=== PATIENT | female | born 1945 | race Caucasian/White ===

== ENCOUNTER 2017-06-20 07:45 | Emergency (ER) | payer MEDICARE ==
[~2017-06-20] VITALS: Ht 165.1 cm; Wt 54.5 kg
[2017-06-20 07:48] VITALS: BP 140/76; PULSE 113; RESP 15; TEMP 97.8; O2SAT 99
[2017-06-20] MEDS ORDERED: ESTR42.5V VAGINAL (08:10)
[2017-06-20] MEDS ORDERED: LEVO.05 PO (08:10)
[2017-06-20] MEDS ORDERED: PROG100C PO (08:10)
--- NOTE | 2017-06-20 08:23 | PD ---
HPI Chief Complaint: Pain: Acute or Chronic Time Seen by Provider: 08:05 Travel History International Travel<30 days: No Contact w/Intl Traveler<30days: No Traveled to known affect area: No History of Present Illness HPI 71-year-old female complains of right upper arm aching pain, right-sided neck pain right upper back pain. Patient states that right upper arm pain started about 5-6 months ago. Patient started having right-sided neck pain with radiation to right shoulder pain at the right upper back for the past 2 weeks. Patient denies any recent injury. Patient denies any coughing congestion. Patient denies any chest pain or shortness of breath. PFSH Past Medical History Medical other: Yes (INTERSTICIAL CYSTITIS) Tetanus Vaccination: < 5 Years Influenza Vaccination: Yes ?: Not Past Surgical History Abdominal Surgery: Yes (9 INTESTINAL SURGERIES ) Other Surgery: Yes (ILIOSTOMY - INTERIOR BAG PLACEMENT) Social History Alcohol Use: No Tobacco Use: No Substance Use: No Allergies-Medications (Allergen,Severity, Reaction): Coded Allergies: aspirin (Verified Allergy, Severe, 06/20/17) ibuprofen (Verified Allergy, Severe, 06/20/17) meperidine (Verified Allergy, Severe, 06/20/17) "PSYCHOTIC REACTIONS" Reported Meds & Prescriptions Reported Meds & Active Scripts Active Reported Progesterone Micronized 100 Mg Cap 100 Mg PO DAILY Estrace Vaginal (Estradiol) 0.01% Cream 1 Appl VAGINAL HS Synthroid (Levothyroxine Sodium) 50 Mcg Tab 50 Mcg PO DAILY Review of Systems General / Constitutional: No: Fever Eyes: No: Visual changes HENT: No: Headaches Cardiovascular: No: Chest Pain or Discomfort Respiratory: No: Shortness of Breath Gastrointestinal: No: Abdominal Pain Genitourinary: No: Dysuria Musculoskeletal: Positive: Pain Skin: No Rash Neurologic: No: Weakness Psychiatric: No: Depression Endocrine: No: Polydipsia Hematologic/Lymphatic: No: Easy Bruising Physical Exam Narrative GENERAL: Well-nourished, well-developed patient. SKIN: Focused skin assessment warm/dry. HEAD: Normocephalic. EYES: No scleral icterus. No injection or drainage. NECK: Supple, trachea midline. No JVD or lymphadenopathy. Mild tenderness on palpation right paraspinal area cervical spine. No midline tenderness. CARDIOVASCULAR: Regular rate and rhythm without murmurs, gallops, or rubs. RESPIRATORY: Breath sounds equal bilaterally. No accessory muscle use. GASTROINTESTINAL: Abdomen soft, non-tender, nondistended. MUSCULOSKELETAL: No cyanosis, or edema. Mild tenderness on palpation right shoulder pain area. Full range of motion the right shoulder joint. No deformity noted. BACK: Nontender without obvious deformity. No CVA tenderness. Neurologic exam normal. Data Data Last Documented VS Vital Signs Date Time Temp Pulse Resp B/P (MAP) Pulse Ox O2 Delivery O2 Flow Rate FiO2 06/20/17 07:48 97.8 113 15 140/76 (97) 99 Orders Orders Mri C Spine W/O Contrast (06/20/17 08:18) Humerus (Min 2vws) (06/20/17 08:18) Electrocardiogram (06/20/17 ) MDM Medical Decision Making Medical Screen Exam Complete: Yes Emergency Medical Condition: Yes Interpretation(s) Last Impressions Humerus X-Ray 06/20/17817 Signed Impressions: Service Date/Time: Tuesday, June 20, 2017 08:34 - CONCLUSION: Unremarkable examination of the right humerus. Marco A Miguel Jr., MD Cervical Spine MRI 06/20/17817 Signed Impressions: Service Date/Time: Tuesday, June 20, 2017 09:46 - CONCLUSION: 1. Diffuse degenerative disc disease including areas of narrowing of the central canal, abutment of the cord, and neural foraminal narrowing. No signal change within the cord to suggest edema or myelomalacia. Each level detailed in the above discussion. Marco A Miguel Jr., MD Differential Diagnosis Differential diagnosis including musculoskeletal, radiculopathy. Narrative Course 71-year-old female with right-sided neck pain, right upper back pain, right arm pain. Diagnosis Primary Impression: Cervical radiculopathy Patient Instructions: General Instructions Additional Instructions: Medrol Dosepak as directed. Zantac as directed. Follow-up with neurologist or neurosurgeon. Return if worse. Med/Other Pt SpecificInfo: Prescription(s) given Scripts Methylprednisolone Dosepak (Medrol Dosepak) 4 Mg Dspk 4 MG PO DIRECTED, #1 DSPK 0 Refills Per Pharmacist direction Prov: Grant Ballesteros MD 06/20/17 Disposition: 01 DISCHARGE HOME Condition: Stable Grant Ballesteros MD Jun 20, 2017 08:23
--- NOTE | 2017-06-20 09:04 | RADRPT ---
EXAM DATE/TIME: 06/20/2017 08:34 [facility] COMPARISON: No previous studies available for comparison. INDICATIONS : Right arm pain for several weeks , no history of trauma. MEDICAL HISTORY : None. SURGICAL HISTORY : None. ENCOUNTER: Initial ACUITY: 3 weeks PAIN SCORE: 8/10 LOCATION: Right arm extending into neck FINDINGS: Two view examination of the right humerus demonstrates no evidence of fracture or dislocation. Bony mineralization is normal. Mild degenerative changes of the a.c. joint. The soft tissue structures ar e intact. CONCLUSION: Unremarkable examination of the right humerus. Marco A Miguel Jr., MD on June 20, 2017 at 9:01 Board Certified Radiologist. This report was verified electronically.
--- NOTE | 2017-06-20 10:44 | RADRPT ---
EXAM DATE/TIME: 06/20/2017 09:46 [facility] COMPARISON: No previous studies available for comparison. INDICATIONS : Neck and right arm pain. MEDICAL HISTORY : Renal calculi. SURGICAL HISTORY : Ileostomy. ENCOUNTER: Initial ACUITY: 2 day PAIN SCORE: 4/10 LOCATION: neck TECHNIQUE: Multiplanar, multisequence MRI examination of the cervical spine was performed. FINDINGS: VERTEBRAE: Normal vertebral body height. Homogeneous marrow signal. ALIGNMENT: There is straightening of the cervical spine with grade 1 anterolisthesis of C3 on C4. CORD: Normal configuration and signal. POST FOSSA: The cerebellar tonsils are normal in position. C2-C3: The thecal sac has a normal configuration. There is no evidence of disc herniation or spinal canal s tenosis. The neural foramina are patent bilaterally. C3-C4: There is disc desiccation and broad-based disc bulge in combination with a grade 1 anterolisthesis. N o abutment of the cord or central canal stenosis. Prominent bony uncovertebral hypertrophy bilaterall y but more abundant on the left. There is severe narrowing of the left neural foramen and moderate na rrowing of the right . C4-C5: There is significant disc space narrowing with a broad-based disc osteophyte complex eccentric to the right that just touches the ventral portion of the cord with minimal flattening. Anterior to posteri or dimension of the central canal in the midline is 10 mm. Bony uncovertebral hypertrophy generating pronounced bilateral neural foraminal narrowing. C5-C6: Significant disc space narrowing with a broad-based disc osteophyte complex that mildly flattens the ventral portion of the cord. Central canal measures 10 mm in anterior to posterior dimension within t he midline. Bony uncovertebral hypertrophy generates moderate bilateral lateral recess and severe toya ateral neural foraminal narrowing. C6-C7: Considerable disc space narrowing with a broad-based disc osteophyte complex that just touches and mi nimally flattens the ventral portion of the cord. Central canal measures 10 mm in the midline. Bony u ncovertebral hypertrophy generates moderate bilateral lateral recess narrowing. This also generates s evere right and moderate left neural foraminal narrowing. C7-T1: Disc desiccation with a broad-based disc bulge. No flattening of the cord or central canal stenosis. Neural foramina are patent. CONCLUSION: 1. Diffuse degenerative disc disease including areas of narrowing of the central canal, abutment of t he cord, and neural foraminal narrowing. No signal change within the cord to suggest edema or myeloma lacia. Each level detailed in the above discussion. Marco A Miguel Jr., MD on June 20, 2017 at 10:36 Board Certified Radiologist. This report was verified electronically.
[2017-06-20] MEDS ORDERED: MEDR4PAK PO (11:07)
--- NOTE | 2017-06-20 19:28 | EKG ---
Date Performed: 06/20/2017 Time Performed: 08:24:05 PTAGE: 71 years EKG: Sinus rhythm INDETERMINATE AXIS ATYPICAL ECG NO PREVIOUS TRACING DOCTOR: Aleah Hernandez Interpretating Date/Time 06/20/2017 19:24:43
== END 2017-06-20 11:20 | disposition home or self-care (01) ==
LOC: NEPC 07:45
DX: M54.12 Radiculopathy, cervical region (principal)
CPT/HCPCS: 72141; 73060; 93005; 99285